=== PATIENT | female | born 1940 | race Caucasian/White ===

== ENCOUNTER → 2017-09-04 | Outpatient (CLI) | payer OTHER ==
[~2017-09-04] MED LIST: AMLODIPINE BESY10 MG PO; ASPIR 8181 MG PO; EC-NAPROSYN500 M1 PO; HYDROCODON-ACE1 EAC7 PO; LOSARTAN-HCTZ1 EAC2 PO; MULTIVITAMINS1 EAC7 PO; NABUMETONE 500500 M1 PO; NORCO 5-325 TA1 EACH PO; OMEGA 3 1,0001 EACH PO; OXYBUTYNIN 5 MG5 M1 PO; VITAMIN D32000 UNI1 PO; VITAMIN D32000 UNIT PO; ZOLOFT50 MG PO
== END ==
LOC: RAD 04:19
DX: Z12.31 Encounter for screening mammogram for malignant neoplasm of breast (principal)

== ENCOUNTER → 2018-11-03 | Outpatient (CLI) | payer OTHER | LOC: RAD 11:54 | DX: Z12.31 Encounter for screening mammogram for malignant neoplasm of breast (principal) ==

== ENCOUNTER → 2021-09-07 | Outpatient (CLI) | payer OTHER | LOC: RAD 13:26 | PROVIDERS: ATTEND Internal Medicine | DX: Z12.31 Encounter for screening mammogram for malignant neoplasm of breast (principal); N64.89 Other specified disorders of breast ==